=== PATIENT | female | born 1960 ===

== ENCOUNTER 2018-04-13 11:44 | Day surgery (SDC) | payer OTHER ==
[2018-04-09 09:38] VITALS: BMI 34.5
[2018-04-13 12:17] VITALS: TEMP 98.3
[2018-04-13] MEDS ORDERED: Propofol 10 mg/ml Inj (20 ML) ONE (13:09)
[2018-04-13] MEDS ORDERED: Sodium Chloride 0.9% 1,000 ML IV SCH (13:45)
[2018-04-13 14:21] VITALS: BP 138/72; PULSE 59; RESP 16; O2SAT 100
== END 2018-04-13 15:00 | disposition home or self-care (01) ==
LOC: ENDO 11:44
PROVIDERS: ATTEND Internal Medicine Gastroenterology
DX: K29.50 Unspecified chronic gastritis without bleeding (principal); R10.13 Epigastric pain
CPT/HCPCS: 43239; J2001; J2704; J7030; J7040